=== PATIENT | female | born 1975 | race Asian ===

== ENCOUNTER 2024-12-16 16:06 | Emergency (ER) | payer BC ==
[~2024-12-16] VITALS: Ht 160 cm; Wt 70.0 kg
[2024-12-16 16:11] VITALS: O2SAT 96
[2024-12-16] MEDS: LIDOCAINE HCL/EPINEPHRINE 1%-EPI 1:100,000 20ML VIAL INFIL ONE (17:30)
[2024-12-16] MEDS: TETANUS, DIPHTHERIA, PERTUSSIS VAC/PF 0.5ML (>10YR OLD) IM ONE (17:30)
[2024-12-16] MEDS ORDERED: BO1 TP (19:37)
[2024-12-16 20:15] VITALS: BP 113/69; PULSE 62; RESP 18; TEMP 36.6; O2SAT 96
== END 2024-12-16 20:27 | disposition home or self-care (01) ==
LOC: ER 16:06
DX: S91.312A Laceration without foreign body, left foot, initial encounter (principal); Z79.899 Other long term (current) drug therapy; X58.XXXA Exposure to other specified factors, initial encounter; Y93.89 Activity, other specified; Y92.89 Other specified places as the place of occurrence of the external cause; Y99.8 Other external cause status
CPT/HCPCS: 99283; 73620; 90715; 12002; 90471; J2004